=== PATIENT | male | born 1940 | race Hispanic/Latino ===

== ENCOUNTER 2019-05-11 14:57 | Emergency (ER) | payer MEDICARE ==
--- NOTE | 2019-05-11 15:34 | Emergency Department Report ---
HPI - General Chief Complaint: Fall Time Seen by Provider: 05/11/19 15:24 - HPI HPI: 78-year-old male presents to the emergency department with complaint of left hip pain after a fall. The patient was coming down off of a ladder and missed the last rung. He fell onto the left side of his body. He has pain to the left hip when trying to bear weight or with any movement of his leg. He denies any back pain or any other extremity pain. He did hit his head but denies any loss of consciousness. He did not take anything for his symptoms prior to presentation today. He has a past medical history of DVT/PE and hypertension. ED Review of Systems ROS: Stated complaint: FALL/(L) HIP PAIN Other details as noted in HPI Comment: All other systems reviewed and negative Constitutional: denies: chills, fever Respiratory: denies: shortness of breath Cardiovascular: denies: chest pain Gastrointestinal: denies: abdominal pain Musculoskeletal: arthralgia. denies: back pain Skin: denies: rash, lesions Neurological: denies: numbness, paresthesias Physical Exam - Physical Exam Physical Exam: GENERAL: The patient is well-developed well-nourished. HENT: Normocephalic. Atraumatic. Patient has moist mucous membranes. EYES: Extraocular motions are intact. NECK: Supple. Trachea is midline. CHEST/LUNGS: Clear to auscultation. There is no respiratory distress noted. HEART/CARDIOVASCULAR: Regular. There is no tachycardia. ABDOMEN: Abdomen is soft, nontender. Patient has normal bowel sounds. There is no abdominal distention. SKIN: Skin is warm and dry. NEURO: The patient is awake, alert, and oriented. The patient is cooperative. The patient has no focal neurologic deficits. Normal speech. MUSCULOSKELETAL: There is some tenderness to palpation to the left hip. Patient has left hip pain with both passive and active range of motion. Decreased range of motion of the left lower extremity secondary to hip pain. ED Course - Consultations Consultation #1: 05/11/19 18:[address] Tee, orthopedist vision impaired teacher for [facility], who has accepted the patient for transfer to the [facility] and the patient will most likely have surgical repair of his hip fracture tomorrow. ED Medical Decision Making - Lab Data Result diagrams: 05/11/19 16:34 05/11/19 16:34 - Radiology Data Radiology results: image reviewed interpreted by me: X-ray of the left hip shows a left femoral neck fracture. - Medical Decision Making This patient presents after falling down 1-2 rungs of a ladder onto his left side. He presents with hip pain. X-ray shows a femoral neck hip fracture. Pa tient is neurovascularly intact. CT scan of the head without contrast does not show any bleed, shift, mass, ischemia. As we do not have an orthopedist vision impaired teacher until next Tuesday, the patient will be transferred to [facility] and was accepted by Dr. Tee. His labs have been unremarkable. The patient has received multiple doses of IV morphine for analgesia. - Differential Diagnosis Hip fracture, contusion, concussion, brain bleed Critical Care Time: Yes Critical care time in (mins) excluding proc time.: 35 Critical care attestation.: If time is entered above; I have spent that time in minutes in the direct care of this critically ill patient, excluding procedure time. Due to the immediate potential for life-threatening deterioration due to underlying orthopedic condition, I spent 35 minutes of critical care time with the patient. Critical care time was spent on this patient in doing his initial evaluation, multiple re-evaluations, ordering and interpretation of labs and imaging, discussion with the orthopedist at the accepting hospital, multiple discussions with the patient. Critical Care Time: 35 minutes ED Disposition Clinical Impression: Closed left hip fracture Qualifiers: Encounter type: initial encounter Qualified Code(s): S72.002A - Fracture of unspecified part of neck of left femur, initial encounter for closed fracture Scalp contusion Qualifiers: Encounter type: initial encounter Qualified Code(s): S00.03XA - Contusion of scalp, initial encounter Disposition: DC/TX-70 ANOTHER TYPE [facility]TH[facility]ARE Is pt being admited?: No Condition: Serious Referrals: HOANG SUAREZ MD [Primary Care Provider] - 3-5 Days Time of Disposition: 22:23
--- NOTE | 2019-05-11 16:10 | XRay Report ---
LEFT HIP 2 VIEWS INDICATION / CLINICAL INFORMATION: Fall down steps with left hip pain. COMPARISON: None available. FINDINGS: BONES / JOINT(S): There is an acute fracture of the left femoral neck just above the intertrochanteri c region. There is mild medial angulation of the distal fracture fragment. There are minimal degenera tive changes involving the hips and lower lumbar spine. SOFT TISSUES: No significant abnormality. ADDITIONAL FINDINGS: None. IMPRESSION: Acute fracture of the left femoral neck. Signer Name: Harrison Almendarez MD Signed: 05/11/2019 4:06 PM Workstation Name: [id number]
[2019-05-11] MEDS ORDERED: MORPHINE 4 MG/1 ML INJ IV ONE ×2 (16:21→18:49)
[2019-05-11 16:49] LABS: Basophils % (Auto) 0.5 % (0.0-1.8); Eosinophils # (Auto) 0.1 K/mm3 (0.0-0.4); Eosinophils % (Auto) 2.1 % (0.0-4.3); Hematocrit 40.7 % (35.5-45.6); Hemoglobin 13.6 gm/dl (11.8-15.2); Lymphocytes # (Auto) 1.6 K/mm3 (1.2-5.4); Lymphocytes % (Auto) 22.4 % (13.4-35.0); Mean Corpuscular HGB Conc 34 % (32-34); Mean Corpuscular Volume 90 fl (84-94); Monocytes # (Auto) 0.6 K/mm3 (0.0-0.8); Monocytes % (Auto) 8.1 % (0.0-7.3); Platelet Count 205 K/mm3 (140-440); Red Blood Count 4.51 M/mm3 (3.65-5.03); Red Cell Distribution Width 13.9 % (13.2-15.2)
[2019-05-11 17:06] LABS: Calcium 9.1 mg/dL (8.4-10.2)
--- NOTE | 2019-05-11 17:47 | Cat Scan Report ---
CT BRAIN: 05/11/2019 INDICATION / CLINICAL INFORMATION: fall, headache. COMPARISON: None available. FINDINGS: BRAIN/INTRACRANIAL STRUCTURES: Unenhanced CT images of the brain demonstrate no evidence of acute int racranial abnormality. Ventricles and sulci are prominent in size, consistent with age-related atrophic change. There is no evidence of acute ischemic injury, hemorrhage, or mass. There are no abnormal extra-axial fluid collections. Left lateral parietal scalp swelling is noted. EXTRACRANIAL STRUCTURES: Unremarkable. IMPRESSION: No acute intracranial abnormality. Chronic and age-related changes. Scalp injury noted. All CT scans at this location are performed using dose reduction to ALARA by means of automated expos ure control. Signer Name: Carlos Espinoza MD Signed: 05/11/2019 5:43 PM Workstation Name: [id number]
[2019-05-11 20:10] VITALS: BP 142/70
[2019-05-11] MEDS ORDERED: MORPHINE 2 MG/1 ML INJ IV ONE (21:32)
== END 2019-05-11 21:56 | disposition other institution (70) ==
LOC: ED 14:57
DX: S72.002A Fracture of unspecified part of neck of left femur, initial encounter for closed fracture (principal); S00.03XA Contusion of scalp, initial encounter; I10 Essential (primary) hypertension; E78.5 Hyperlipidemia, unspecified; Z86.718 Personal history of other venous thrombosis and embolism; W11.XXXA Fall on and from ladder, initial encounter; Y93.89 Activity, other specified; Y92.89 Other specified places as the place of occurrence of the external cause; Y99.8 Other external cause status
CPT/HCPCS: 36415; 70450; 73502; 80048; 85025; 96374; 96376; 99285; J2270; 51702; 99291